=== PATIENT | male | born 1955 | race Caucasian/White ===

== ENCOUNTER 2020-10-15 06:54 | Outpatient (NON) | payer OTHER, SELFPAY ==
[2020-10-15 18:05] LABS: SARS-CoV-2 RNA PCR Negative
== END 2020-10-15 06:55 ==
LOC: ANHCOVIDDT 06:56
PROVIDERS: PCP Internal Medicine; Visit Provider Internal Medicine
DX: R05 Cough (principal); Z20.828 Contact with and (suspected) exposure to other viral communicable diseases
CPT/HCPCS: 87635; C9803; U0003

== ENCOUNTER 2023-05-13 01:22 | Day surgery (SDC) | payer BC, SELFPAY ==
[2023-05-04 08:38] VITALS: BMI 27.8
--- NOTE | 2023-05-12 11:31 | P.HP_ITS ---
History of Present Illness History of Present Illness Consent: Risks, benefits, and alternatives have been discussed and questions answered. Patient agrees to proceed with procedure. Chief complaint: hx colon polyps Narrative: Kristian Cabrera is a 67 year old male Referred for colon cancer screening. He had a polyp removed 5 years ago at the time of his last colonoscopy. Review of Systems Review of Systems: All systems reviewed & are unremarkable except as noted in HPI and below PMFSH Social History Social History Smoking packs per day: 0.5 Smoking cigarettes per day: 10.0 Smoking status: Former smoker Tobacco type: cigarettes Alcohol intake: current Alcohol use details: occasional Substance use: never Substance use type: does not use Living arrangements: alone Spiritual care concerns: No Meds Home Medications and Allergies Home Medications Medication Instructions Recorded Confirmed Type acyclovir 400 mg tablet 400 mg PO DAILY 05/04/23 05/04/23 History aspirin 81 mg tablet,delayed 81 mg PO DAILY 05/04/23 05/04/23 History release lisinopril 20 mg tablet 20 mg PO DAILY 05/04/23 05/04/23 History meloxicam 15 mg tablet 15 mg PO DAILY 05/04/23 05/04/23 History uelpamcsuene-haidnddl-twjlvl tablet 1 tablet PO DAILY 05/04/23 05/04/23 History semaglutide 1 mg/dose (4 mg/3 mL) 1 mg subcut WEEKLY 05/04/23 05/04/23 History subcutaneous pen injector (Ozempic) Allergies Allergy/AdvReac Type Severity Reaction Status Date / Time No Known Allergies Allergy Unverified 05/13/23 07:38 Exam 2 Resp: Auscultation: clear to auscultation bilaterally Cardio: Rate: regular rate Rhythm: regular rhythm GI: GI Palp: Yes Soft to palpation and No Tenderness to palpation present (GI) Assessment and Plan Assessment and plan (1) Colon cancer screening: Code(s): Z12.11 - Encounter for screening for malignant neoplasm of colon Status: Acute Assessment and Plan: Colonoscopy with possible biopsy or polypectomy or cautery or injection of substances.
[2023-05-13 07:40] VITALS: BP 148/85; PULSE 87; RESP 18; TEMP 36.1; O2SAT 99
[2023-05-13] MEDS: LACTATED RINGERS 1,000 ML 150 ML IV CONT (07:49)
[2023-05-13 07:51] LABS: Glucose Point of Care 89 mg/dl (65-105)
--- NOTE | 2023-05-13 08:10 | P.PNAN_ITS ---
Anes - Initial Pre Proc Eval Procedure: Operation Date: 05/13/23 08:30 Proposed Procedures p Colonoscopy - Anish Bunn MD Date/Time: 05/13/23 08:10 Surgeon: Anish Bunn MD Pre Op Diagnosis: hx colon polyps Patient Data Age: 67 Gender: M Height: 1.8 m Weight: 89.8 kg Last Vital Signs Temp 97 F L 05/13/23 07:40 Pulse 87 05/13/23 07:40 Resp 18 05/13/23 07:40 BP 148/85 H 05/13/23 07:40 Pulse Ox 99 05/13/23 07:40 O2 Del Method Room Air 05/13/23 07:40 Allergies Allergy/AdvReac Type Severity Reaction Status Date / Time No Known Allergies Allergy Unverified 05/13/23 07:38 Home Medications Medication Instructions Recorded Confirmed Type acyclovir 400 mg tablet 400 mg PO DAILY 05/04/23 05/04/23 History aspirin 81 mg tablet,delayed 81 mg PO DAILY 05/04/23 05/04/23 History release lisinopril 20 mg tablet 20 mg PO DAILY 05/04/23 05/04/23 History meloxicam 15 mg tablet 15 mg PO DAILY 05/04/23 05/04/23 History hzjtdftrhxne-bkycudpr-oatecx tablet 1 tablet PO DAILY 05/04/23 05/04/23 History semaglutide 1 mg/dose (4 mg/3 mL) 1 mg subcut WEEKLY 05/04/23 05/04/23 History subcutaneous pen injector (Ozempic) Laboratory Tests 05/13/23 07:48 POC Capillary Glucose 89 mg/dl (65-105) Patient hx anesthesia problems: none Family hx anesthesia problems: none Results Review: All pre-operative results and documents have been reviewed as part of the pre- operative evaluation. [facility] Social History Social History Smoking packs per day: 0.5 Smoking cigarettes per day: 10.0 Smoking status: Former smoker Tobacco type: cigarettes Alcohol intake: current Alcohol use details: occasional Substance use: never Substance use type: does not use Living arrangements: alone Spiritual care concerns: No Anes - Eval Final PreProcedure Day of Procedure 05/13/23 08:10 Patient weight: normal Heart: regular rate and rhythm Lungs: clear to auscultation Airway: Mallampati scale class III Neurological: alert and oriented Last oral intake: >/= 8 hours ASA classification: II Emergent: no Anesthetic plan: proceed Anesthesia type and monitoring: general GIVS and standard monitoring Results Review: All pre-operative results and documents have been reviewed as part of the pre-o perative evaluation. Informed Consent: The patient's anesthetic plan and its attendant risks and benefits were discussed with the patient/family/POA. Questions were solicited and answers provided to the satisfaction of the patient/family/POA.
[2023-05-13 08:37] VITALS: BP 125/85; PULSE 78; RESP 16; O2SAT 98
[2023-05-13 08:47] VITALS: BP 110/71; PULSE 78; RESP 21; O2SAT 100
[2023-05-13 08:57] VITALS: BP 128/82; PULSE 78; RESP 19; O2SAT 100
== END 2023-05-13 09:04 | disposition home or self-care (01) ==
PROVIDERS: PCP Internal Medicine; Visit Provider Internal Medicine Gastroenterology
PROC: 0DJD8ZZ Inspection of Lower Intestinal Tract, Via Natural or Artificial Opening Endoscopic (ICD-10-PCS; CPT 45378; principal; 2023-05-13 08:30)
DX: Z12.11 Encounter for screening for malignant neoplasm of colon (principal); Z86.010 Personal history of colon polyps; K57.30 Diverticulosis of large intestine without perforation or abscess without bleeding; Z87.891 Personal history of nicotine dependence
CPT/HCPCS: 45378; 82948; J2704; J7120

== ENCOUNTER 2023-09-05 08:28 | Outpatient (CLI) | payer BC, SELFPAY ==
[2023-09-05 20:09] LABS: Basophils Percent Auto 0.4 % (0.2-1.2); Eosinophils Absolute Auto 0.1 K/mm3 (0-0.3); Eosinophils Percent Auto 2.7 % (0-4.4); Hematocrit 43.5 % (42.0-52.0); Hemoglobin 13.5 g/dL (14.0-18.0); Immature Granulocyte Absolute 0.01 K/mm3 (0.00-0.031); Immature Granulocyte Percent A 0.4 % (0-0.5); Lymphocytes Absolute Auto 0.66 K/mm3 (0.9-3.2); Lymphocytes Percent Auto 25.5 % (18.3-44.2); Mean Corpuscular Hemoglobin 29.8 pg (26-34); Mean Platelet Volume 10.9 fl (7.4-10.4); Monocytes Absolute Auto 0.2 K/mm3 (0.1-0.6); Monocytes Percent Auto 7.7 % (2.6-8.5); Neutrophils Absolute Auto 1.6 K/mm3 (1.3-6.7); Neutrophils Percent Auto 63.3 % (45.5-73.1); Platelet Count Result 71 k/mm3 (150-375); Red Blood Count 4.53 M/mm3 (4.6-6.20); Red Cell Distribution Width 13.9 % (11.5-14.5); White Blood Count 2.6 K/mm3 (4.5-10.0)
[2023-09-05 20:36] LABS: Creatinine Urine 204.7 mg/dL
[2023-09-05 20:43] LABS: MALB Creatinine Ratio 12.1 mg/g (0-30); Microalbumin Urine Random 24.7 mg/L (0-16.7)
[2023-09-05 21:10] LABS: LDL Cholesterol Direct 81 mg/dL
[2023-09-05 21:11] LABS: Alanine Aminotransferase 30 U/L (6-50); Albumin Level 4.4 g/dL (3.5-5.1); Alkaline Phosphatase 90 U/L (38-126); Anion Gap 7 mmol/L (8-16); Aspartate Amino Transferase 42 U/L (17-59); Bilirubin,Total 0.7 mg/dL (0.2-1.3); Blood Urea Nitrogen 23 mg/dL (9-20); Calcium 9.5 mg/dL (8.4-10.2); Carbon Dioxide 31 mmol/L (22-30); Chloride 103 mmol/L (98-107); Cholesterol 154 mg/dL (0-200); Estimated Glomerular Filt Rate 51; Glucose 109 mg/dL (65-110); HDL Direct 34 mg/dL; Potassium 4.6 mmol/L (3.4-5.0); Sodium 141 mmol/L (137-145); Triglycerides 201 mg/dL (<150)
[2023-09-05 21:30] LABS: Prostate Specific Antigen 1.1 ng/mL (< OR = 4.0)
[2023-09-05 21:40] LABS: Hemoglobin A1C 5.1 % (<5.7)
[2023-09-05 22:05] LABS: Platelet Estimate Decreased (Adequate); Schistocytes None Seen (NORMAL)
[2023-09-05 22:06] LABS: Hypochromasia 1+ (NORMAL)
[2023-09-07 13:04] LABS: Apolipoprotein B 78 mg/dL (<90)
== END 2023-09-05 08:29 | disposition home or self-care (01) ==
LOC: ANHGOSHLAB 08:30
PROVIDERS: PCP Internal Medicine; Visit Provider Nurse Practitioner
DX: E11.9 Type 2 diabetes mellitus without complications (principal); E78.5 Hyperlipidemia, unspecified; I10 Essential (primary) hypertension; Z12.5 Encounter for screening for malignant neoplasm of prostate
CPT/HCPCS: 36415; 80053; 80061; 82043; 82172; 83036; 84153; 85025; 85055; G0103

== ENCOUNTER 2023-09-28 08:15 | Outpatient (CLI) | payer BC, SELFPAY ==
[2023-09-28 14:20] LABS: Basophils Percent Auto 0.3 % (0.2-1.2); Eosinophils Absolute Auto 0.1 K/mm3 (0-0.3); Eosinophils Percent Auto 1.6 % (0-4.4); Hematocrit 42.5 % (42.0-52.0); Hemoglobin 13.4 g/dL (14.0-18.0); Immature Granulocyte Absolute 0.01 K/mm3 (0.00-0.031); Immature Granulocyte Percent A 0.3 % (0-0.5); Immature Platelet Fraction Pct 5.4 % (0.9-11.2); Immature Reticulocyte Fraction 9.5 % (3.0-15.9); Lymphocytes Absolute Auto 0.75 K/mm3 (0.9-3.2); Mean Corpuscular HGB Conc 31.5 g/dl (32-36); Mean Corpuscular Hemoglobin 30.2 pg (26-34); Mean Corpuscular Volume 95.9 fl (80-100); Monocytes Absolute Auto 0.2 K/mm3 (0.1-0.6); Monocytes Percent Auto 7.7 % (2.6-8.5); Neutrophils Absolute Auto 2.1 K/mm3 (1.3-6.7); Neutrophils Percent Auto 66.1 % (45.5-73.1); Platelet Count Result 65 k/mm3 (150-375); Red Blood Count 4.43 M/mm3 (4.6-6.20); Red Cell Distribution Width 13.9 % (11.5-14.5); Reticulocyte Hemoglobin Conten 32.4 pg (28.2-35.7); Reticulocyte Percent 1.41 % (0.7-4.3); Reticulocytes Absolute 0.06 M/mm3 (0.02-0.1); White Blood Count 3.1 K/mm3 (4.5-10.0)
[2023-09-28 14:42] LABS: Alanine Aminotransferase 34 U/L (6-50); Albumin Level 4.1 g/dL (3.5-5.1); Alkaline Phosphatase 90 U/L (38-126); Anion Gap 11 mmol/L (8-16); Aspartate Amino Transferase 36 U/L (17-59); Bilirubin,Total 0.6 mg/dL (0.2-1.3); Blood Urea Nitrogen 20 mg/dL (9-20); Calcium 9.2 mg/dL (8.4-10.2); Carbon Dioxide 26 mmol/L (22-30); Chloride 102 mmol/L (98-107); Estimated Glomerular Filt Rate > 60; Glucose 158 mg/dL (65-110); Potassium 4.3 mmol/L (3.4-5.0); Sodium 139 mmol/L (137-145)
[2023-09-28 15:02] LABS: Creatinine Urine 175.3 mg/dL
[2023-09-28 15:09] LABS: Microalbumin Urine Random 35.1 mg/L (0-16.7)
[2023-09-28 15:15] LABS: HIV 1/2 Ab P24 Ag Result Negative (Negative)
[2023-09-28 15:30] LABS: Hepatitis C Virus Antibody Negative (Negative)
[2023-09-30 11:49] LABS: Folic Acid > 20.0 ng/mL (2.76->20)
== END 2023-09-28 08:16 | disposition home or self-care (01) ==
LOC: ANHGOSHLAB 08:16
PROVIDERS: PCP Internal Medicine; Visit Provider Nurse Practitioner
DX: D61.818 Other pancytopenia (principal)
CPT/HCPCS: 36415; 80053; 82043; 82607; 82728; 82746; 85025; 85046; 85055; 86703; 86803; G0432

== ENCOUNTER 2023-11-03 15:46 | Outpatient (CLI) | payer BC, SELFPAY ==
[2023-11-03 16:10] LABS: Basophils Percent Auto 0.6 % (0.2-1.2); Eosinophils Absolute Auto 0.1 K/mm3 (0-0.3); Eosinophils Percent Auto 1.9 % (0-4.4); Hematocrit 43.9 % (42.0-52.0); Hemoglobin 14.4 g/dL (14.0-18.0); Immature Granulocyte Absolute 0.02 K/mm3 (0.00-0.031); Immature Granulocyte Percent A 0.4 % (0-0.5); Lymphocytes Absolute Auto 1.01 K/mm3 (0.9-3.2); Lymphocytes Percent Auto 19.6 % (18.3-44.2); Mean Corpuscular HGB Conc 32.8 g/dl (32-36); Mean Corpuscular Hemoglobin 29.7 pg (26-34); Mean Corpuscular Volume 90.5 fl (80-100); Mean Platelet Volume 10.9 fl (7.4-10.4); Monocytes Absolute Auto 0.4 K/mm3 (0.1-0.6); Neutrophils Absolute Auto 3.6 K/mm3 (1.3-6.7); Neutrophils Percent Auto 69.5 % (45.5-73.1); Platelet Count Result 85 k/mm3 (150-375); Red Blood Count 4.85 M/mm3 (4.6-6.20); Red Cell Distribution Width 13.8 % (11.5-14.5); White Blood Count 5.2 K/mm3 (4.5-10.0)
[2023-11-03 20:16] LABS: Alanine Aminotransferase 45 U/L (6-50); Albumin Level 4.5 g/dL (3.5-5.1); Alkaline Phosphatase 97 U/L (38-126); Anion Gap 16 mmol/L (8-16); Aspartate Amino Transferase 40 U/L (17-59); Bilirubin,Total 0.8 mg/dL (0.2-1.3); Blood Urea Nitrogen 28 mg/dL (9-20); Calcium 9.7 mg/dL (8.4-10.2); Carbon Dioxide 24 mmol/L (22-30); Chloride 101 mmol/L (98-107); Estimated Glomerular Filt Rate 55; Glucose 108 mg/dL (65-110); Lactate Dehydrogenase 173 U/L (120-246); Potassium 4.4 mmol/L (3.4-5.0); Sodium 141 mmol/L (137-145)
[2023-11-03 21:19] LABS: Iron 78 ug/dL (49-181)
[2023-11-03 21:29] LABS: Percent Iron Saturation 25 % (20-50)
[2023-11-06 12:49] LABS: Methylmalonic Acid 267 nmol/L (87-318)
[2023-11-09 18:41] LABS: Soluble Transferrin Receptor 2.27 mg/L (0.76-1.76)
== END 2023-11-03 15:47 | disposition home or self-care (01) ==
LOC: ANHLAB 15:48
PROVIDERS: PCP Internal Medicine; Visit Provider Internal Medicine Hematology & Oncology
DX: D64.9 Anemia, unspecified (principal)
CPT/HCPCS: 36415; 80053; 82728; 83540; 83550; 83615; 83921; 84238; 85025; 85055

== ENCOUNTER 2023-11-17 07:34 | Outpatient (CLI) | payer BC, SELFPAY ==
--- NOTE | ~2023-11-17 | US_ITS ---
EXAMINATION: US abdomen complete DATE: 11/17/2023 INDICATION: Other secondary thrombocytopenia. TECHNIQUE: Multiple grayscale and Doppler ultrasound images of the abdomen were obtained. COMPARISON: None FINDINGS: The visualized portions of the head and body of the pancreas are normal. There is diffuse h epatic steatosis. There is normal flow in main portal vein. The gallbladder is normal in size and con tains stones. No gallbladder wall thickening or sonographic Cook sign. The common duct is normal an d measures 5 mm. Inferior vena cava is normal. The abdominal aorta is normal in caliber. The kidneys are normal in size. There is mild splenomegaly measuring 14.5 cm. IMPRESSION: 1. Mild splenomegaly. 2. Diffuse hepatic steatosis. 3. Cholelithiasis. Reviewed, dictated and finalized at location E. 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
== END 2023-11-17 07:35 | disposition home or self-care (01) ==
PROVIDERS: PCP Internal Medicine; Visit Provider Internal Medicine Hematology & Oncology
DX: R16.1 Splenomegaly, not elsewhere classified (principal); K76.0 Fatty (change of) liver, not elsewhere classified; K80.20 Calculus of gallbladder without cholecystitis without obstruction; D69.59 Other secondary thrombocytopenia
CPT/HCPCS: 76700

== ENCOUNTER 2024-02-22 12:28 | Outpatient (CLI) | payer BC, SELFPAY ==
[2024-02-22 20:11] LABS: Anion Gap 5 mmol/L (4-12); Blood Urea Nitrogen 25 mg/dL (9-20); Calcium 9.5 mg/dL (8.4-10.2); Carbon Dioxide 29 mmol/L (22-30); Chloride 106 mmol/L (98-107); Estimated Glomerular Filt Rate 51; Glucose 100 mg/dL (65-110); Potassium 4.5 mmol/L (3.4-5.0); Sodium 140 mmol/L (137-145)
== END 2024-02-22 12:29 | disposition home or self-care (01) ==
LOC: ANHGOSHLAB 12:29
PROVIDERS: PCP Internal Medicine; Visit Provider Nurse Practitioner
DX: E11.9 Type 2 diabetes mellitus without complications (principal)
CPT/HCPCS: 36415; 80048; 83036

== ENCOUNTER 2024-02-29 13:58 | Outpatient (CLI) | payer BC, SELFPAY ==
[2024-02-29 14:11] LABS: Basophils Percent Auto 0.6 % (0.2-1.2); Eosinophils Absolute Auto 0.1 K/mm3 (0-0.3); Eosinophils Percent Auto 1.7 % (0-4.4); Hematocrit 40.5 % (42.0-52.0); Hemoglobin 13.2 g/dL (14.0-18.0); Immature Granulocyte Absolute 0.01 K/mm3 (0.00-0.031); Immature Granulocyte Percent A 0.3 % (0-0.5); Immature Platelet Fraction Pct 4.8 % (0.9-11.2); Lymphocytes Absolute Auto 0.93 K/mm3 (0.9-3.2); Lymphocytes Percent Auto 26.6 % (18.3-44.2); Mean Corpuscular HGB Conc 32.6 g/dl (32-36); Mean Corpuscular Hemoglobin 29.3 pg (26-34); Mean Platelet Volume 10.2 fl (7.4-10.4); Monocytes Absolute Auto 0.3 K/mm3 (0.1-0.6); Monocytes Percent Auto 9.4 % (2.6-8.5); Neutrophils Absolute Auto 2.2 K/mm3 (1.3-6.7); Neutrophils Percent Auto 61.4 % (45.5-73.1); Platelet Count Result 67 k/mm3 (150-375); Red Cell Distribution Width 13.8 % (11.5-14.5); White Blood Count 3.5 K/mm3 (4.5-10.0)
== END 2024-02-29 13:59 | disposition home or self-care (01) ==
LOC: ANHLAB 14:00
PROVIDERS: PCP Internal Medicine; Visit Provider Internal Medicine Hematology & Oncology
DX: D64.9 Anemia, unspecified (principal)
CPT/HCPCS: 36415; 85025; 85055

== ENCOUNTER 2024-03-08 01:33 | Day surgery (SDC) | payer BC, SELFPAY ==
[2024-03-07 18:08] VITALS: BMI 29.3
--- NOTE | ~2024-03-08 | BM_ITS ---
EXAMINATION: CCL bone marrow asp w bx diag DATE: 03/08/2024 09:26 INDICATION: Chronic anemia. TECHNIQUE: A time-out was performed to verify the patient's name, date of , and procedure to b e performed. The procedure including the risks, benefits, and alternatives was discussed with the pat ient. Risks discussed included bleeding and infection. The patient understood the risks and agreed to proceed. The skin overlying the left ilium was prepped and draped in usual sterile fashion. Anesth etic was administered with 1% lidocaine subcutaneously. Moderate sedation was achieved with 1 mg Vers ed IV and 50 mcg fentanyl IV. An 11 gauge needle was inserted into the ilium with fluoroscopic tanya nce. Bone marrow was aspirated. An 8 gauge needle was then inserted into the ilium with fluoroscopic guidance. A core bone marrow biopsy was obtained. There were no immediate complications. Fluoroscopy exposure time was 0.0 minutes. The total number of images was 45. FINDINGS: Real-time fluoroscopy demonstrates a marker overlying the left posterior superior iliac spi ne. IMPRESSION: 1. Fluoro-guided bone marrow aspiration. 2. Fluoro-guided bone marrow core biopsy. Reviewed, dictated and finalized at location A.
[2024-03-08 08:17] VITALS: BP 121/81; PULSE 76; RESP 18; TEMP 36.6; O2SAT 97; BMI 30.2
[2024-03-08 08:17] LABS: Basophils Percent Auto 0.6 % (0.2-1.2); Eosinophils Absolute Auto 0.1 K/mm3 (0-0.3); Eosinophils Percent Auto 1.9 % (0-4.4); Hematocrit 41.1 % (42.0-52.0); Hemoglobin 13.3 g/dL (14.0-18.0); Immature Granulocyte Absolute 0.01 K/mm3 (0.00-0.031); Immature Granulocyte Percent A 0.3 % (0-0.5); Immature Platelet Fraction Pct 3.8 % (0.9-11.2); Lymphocytes Absolute Auto 0.67 K/mm3 (0.9-3.2); Lymphocytes Percent Auto 21.7 % (18.3-44.2); Mean Corpuscular HGB Conc 32.4 g/dl (32-36); Mean Corpuscular Hemoglobin 29.1 pg (26-34); Mean Corpuscular Volume 89.9 fl (80-100); Mean Platelet Volume 10.2 fl (7.4-10.4); Monocytes Absolute Auto 0.3 K/mm3 (0.1-0.6); Neutrophils Percent Auto 65.5 % (45.5-73.1); Platelet Count Result 68 k/mm3 (150-375); Red Blood Count 4.57 M/mm3 (4.6-6.20); Red Cell Distribution Width 13.8 % (11.5-14.5); White Blood Count 3.1 K/mm3 (4.5-10.0)
[2024-03-08 08:37] LABS: INR 1.1; Prothrombin Time 14.5 Seconds (11.1-14.7)
--- NOTE | 2024-03-08 08:55 | WPDMODSED ---
Moderate Sedation Note-Pt Data Patient Data Diagnosis: Chronic anemia. Present Complaint: Chronic anemia. Procedure to be performed/Plan: Fluoro-guided bone marrow biopsy of ilium. Allergies Allergy/AdvReac Type Severity Reaction Status Date / Time No Known Allergies Allergy Verified 03/08/24 08:11 Home Medications Medication Instructions Recorded Confirmed Type hwxvdrydeykx-gogwjmba-vcfvqu tablet 1 tablet PO DAILY 05/04/23 03/07/24 History ferrous sulfate 325 mg (65 mg 325 mg PO DAILY 01/12/24 03/07/24 History iron) tablet lisinopril 20 mg tablet 20 mg PO DAILY #90 tabs 02/20/24 03/07/24 Rx Sedation/Anesthesia: No previous sedation/anesthesia problems (including family history). [facility] Past Medical History Medical History (Updated 09/14/23 @ 14:45 by Ness Lerma NP) Diabetes GERD (gastroesophageal reflux disease) HPV in male Hyperlipidemia Hypertension Irregular heart beat Family History Family History Mother Colon cancer Grandparent Diabetes mellitus Social History Social History Smoking packs per day: 0.25 Smoking cigarettes per day: 5.0 Years smoked: 40 Smoking pack-years: 10.00 Smoking status: Former smoker Tobacco type: cigarettes Second hand tobacco smoke exposure: No Alcohol intake: current Drinks per week: 0 Alcohol use details: rare use of alcohol; social use Substance use: current Substance use type: marijuana Lack of Transportation: No Lack of Food: Never True Current Housing: I Have Housing Concerned About Future Housing: No Difficulty Paying Gas/Electric Bills: No Difficulty Paying for Meds: No Currently Unemployed: No Education: High School Diploma/GED Difficulty w/ Childcare or Family Care: No Living arrangements: alone Occupation/Education: occupation Spiritual care concerns: No Agree to blood products: Yes Mod Sed Physical Exam Physical Exam Pre Procedural Exam: Normal: Lungs, Heart Rate, Heart Rhythm and Abdomen and Variation: Appearance (Obese) Hours since solid foods: 12 Hours since liquid intake: 12 Mallampati Classification: class III Internal Medicine - PN: Obj Da Vital Signs Vital Signs: Vital Signs - 24 hr 03/08/24 08:17 Temperature 36.6 C Pulse Rate 76 Respiratory Rate 18 Blood Pressure 121/81 Pulse Oximetry 97 Oxygen Delivery Room Air Labs 03/08/24 08:08 Labs: Laboratory Results - last 24 hr 03/08/24 08:08 WBC 3.1 L RBC 4.57 L Hgb 13.3 L Hct 41.1 L MCV 89.9 MCH 29.1 MCHC 32.4 RDW 13.8 Plt Count 68 L MPV 10.2 Immature Gran % (Auto) 0.3 Neut % (Auto) 65.5 Lymph % (Auto) 21.7 [place] % (Auto) 10.0 H Eos % (Auto) 1.9 Baso % (Auto) 0.6 Lymph # (Auto) 0.67 L [place] # (Auto) 0.3 Eos # (Auto) 0.1 Baso # (Auto) 0.0 Abs Immat Gran (auto) 0.01 Absolute Neuts (auto) 2.0 Absolute Nucleated RBC 0.000 Nucleated RBC % 0.0 % Immature Plt Fraction 3.8 PT 14.5 INR 1.1 ASA Classification/Sedation ASA Classification/Sedation ASA Class: II Emergent: No Risks: Risks, benefits and alternatives explained and patient/family accepted plan for sedation. Patient re-evaluated immediately prior to sedation.
[2024-03-08 09:30] VITALS: BP 126/79; PULSE 79; RESP 20; O2SAT 95
[2024-03-08 09:45] VITALS: BP 127/79; PULSE 77; RESP 14; O2SAT 95
[2024-03-08 10:00] VITALS: BP 119/58; PULSE 75; RESP 14; O2SAT 97
[2024-03-08 10:15] VITALS: BP 120/61; PULSE 81; RESP 13; O2SAT 95
== END 2024-03-08 10:20 | disposition home or self-care (01) ==
PROVIDERS: PCP Internal Medicine; Referring Provider Internal Medicine Hematology & Oncology; Visit Provider Radiology Diagnostic Radiology
DX: D64.9 Anemia, unspecified (principal); I10 Essential (primary) hypertension; E11.9 Type 2 diabetes mellitus without complications; K21.9 Gastro-esophageal reflux disease without esophagitis; E78.5 Hyperlipidemia, unspecified; F12.90 Cannabis use, unspecified, uncomplicated; Z87.891 Personal history of nicotine dependence; Z80.0 Family history of malignant neoplasm of digestive organs
CPT/HCPCS: 36415; 38222; 85025; 85055; 85610; 88184; 88185; 88305; 88311; 88313; 88342; J1642; J2250; J3010; J7040

== ENCOUNTER 2024-06-20 14:11 | Outpatient (CLI) | payer BC, SELFPAY ==
[2024-06-20 14:27] LABS: Basophils Percent Auto 0.5 % (0.2-1.2); Eosinophils Absolute Auto 0.1 K/mm3 (0-0.3); Eosinophils Percent Auto 2.6 % (0-4.4); Hematocrit 41.8 % (42.0-52.0); Hemoglobin 13.4 g/dL (14.0-18.0); Immature Granulocyte Absolute 0.01 K/mm3 (0.00-0.031); Immature Granulocyte Percent A 0.3 % (0-0.5); Immature Platelet Fraction Pct 5.1 % (0.9-11.2); Lymphocytes Absolute Auto 0.86 K/mm3 (0.9-3.2); Lymphocytes Percent Auto 22.2 % (18.3-44.2); Mean Corpuscular HGB Conc 32.1 g/dl (32-36); Mean Corpuscular Hemoglobin 29.1 pg (26-34); Mean Corpuscular Volume 90.7 fl (80-100); Mean Platelet Volume 10.3 fl (7.4-10.4); Monocytes Absolute Auto 0.3 K/mm3 (0.1-0.6); Monocytes Percent Auto 7.8 % (2.6-8.5); Neutrophils Absolute Auto 2.6 K/mm3 (1.3-6.7); Neutrophils Percent Auto 66.6 % (45.5-73.1); Platelet Count Result 76 k/mm3 (150-375); Red Blood Count 4.61 M/mm3 (4.6-6.20); Red Cell Distribution Width 14.5 % (11.5-14.5); White Blood Count 3.9 K/mm3 (4.5-10.0)
[2024-06-20 14:27] LABS: Blood Urea Nitrogen 25 mg/dL (8-26); Carbon Dioxide 26 mmol/L (22-30); Chloride 103 mmol/L (98-109); Estimated Glomerular Filt Rate 43; Glucose 94 mg/dL (70-105); Ionized Calcium (POC) 1.14 mmol/L (1.11-1.31); Potassium 4.3 mmol/L (3.5-4.9); Sodium 141 mmol/L (138-146)
== END 2024-06-20 14:12 | disposition home or self-care (01) ==
LOC: ANHLAB 14:13
PROVIDERS: PCP Internal Medicine; Visit Provider Internal Medicine Hematology & Oncology
DX: D64.9 Anemia, unspecified (principal)
CPT/HCPCS: 36415; 80047; 85025; 85055

== ENCOUNTER 2024-10-16 15:24 | Outpatient (CLI) | payer BC, SELFPAY ==
[2024-10-16 15:36] LABS: Basophils Percent Auto 0.3 % (0.2-1.2); Eosinophils Absolute Auto 0.1 K/mm3 (0-0.3); Eosinophils Percent Auto 2.3 % (0-4.4); Hematocrit 40.4 % (42.0-52.0); Immature Granulocyte Absolute 0.01 K/mm3 (0.00-0.031); Immature Granulocyte Percent A 0.3 % (0-0.5); Lymphocytes Absolute Auto 0.83 K/mm3 (0.9-3.2); Lymphocytes Percent Auto 23.6 % (18.3-44.2); Mean Corpuscular HGB Conc 32.2 g/dl (32-36); Mean Corpuscular Hemoglobin 29.3 pg (26-34); Mean Platelet Volume 9.6 fl (7.4-10.4); Monocytes Absolute Auto 0.3 K/mm3 (0.1-0.6); Monocytes Percent Auto 8.8 % (2.6-8.5); Neutrophils Absolute Auto 2.3 K/mm3 (1.3-6.7); Neutrophils Percent Auto 64.7 % (45.5-73.1); Platelet Count Result 68 k/mm3 (150-375); Red Blood Count 4.44 M/mm3 (4.6-6.20); Red Cell Distribution Width 13.7 % (11.5-14.5); White Blood Count 3.5 K/mm3 (4.5-10.0)
[2024-10-16 15:39] LABS: Blood Urea Nitrogen 25 mg/dL (8-26); Carbon Dioxide 29 mmol/L (22-30); Chloride 99 mmol/L (98-109); Estimated Glomerular Filt Rate 51; Glucose 105 mg/dL (70-105); Ionized Calcium (POC) 1.19 mmol/L (1.11-1.31); Potassium 4.1 mmol/L (3.5-4.9); Sodium 140 mmol/L (138-146)
== END 2024-10-16 15:25 | disposition home or self-care (01) ==
LOC: ANHLAB 15:25
PROVIDERS: PCP Internal Medicine; Visit Provider Internal Medicine Hematology & Oncology
DX: D64.9 Anemia, unspecified (principal)
CPT/HCPCS: 36415; 80047; 85025

== ENCOUNTER 2024-11-02 07:01 | Outpatient (CLI) | payer BC, SELFPAY ==
[2024-11-02 07:57] LABS: Basophils Percent Auto 0.6 % (0.2-1.2); Eosinophils Absolute Auto 0.1 K/mm3 (0-0.3); Eosinophils Percent Auto 3.4 % (0-4.4); Hematocrit 42.7 % (42.0-52.0); Hemoglobin 13.9 g/dL (14.0-18.0); Immature Granulocyte Absolute 0.01 K/mm3 (0.00-0.031); Immature Granulocyte Percent A 0.3 % (0-0.5); Immature Platelet Fraction Pct 5.8 % (0.9-11.2); Lymphocytes Absolute Auto 0.72 K/mm3 (0.9-3.2); Lymphocytes Percent Auto 22.4 % (18.3-44.2); Mean Corpuscular HGB Conc 32.6 g/dl (32-36); Mean Corpuscular Hemoglobin 29.1 pg (26-34); Mean Corpuscular Volume 89.5 fl (80-100); Mean Platelet Volume 10.9 fl (7.4-10.4); Monocytes Absolute Auto 0.2 K/mm3 (0.1-0.6); Monocytes Percent Auto 7.2 % (2.6-8.5); Neutrophils Absolute Auto 2.1 K/mm3 (1.3-6.7); Neutrophils Percent Auto 66.1 % (45.5-73.1); Platelet Count Result 68 k/mm3 (150-375); Red Blood Count 4.77 M/mm3 (4.6-6.20); Red Cell Distribution Width 13.9 % (11.5-14.5); White Blood Count 3.2 K/mm3 (4.5-10.0)
[2024-11-02 08:23] LABS: Alanine Aminotransferase 30 U/L (6-50); Albumin Level 4.5 g/dL (3.5-5.1); Alkaline Phosphatase 90 U/L (38-126); Anion Gap 6 mmol/L (4-12); Aspartate Amino Transferase 33 U/L (17-59); Bilirubin,Total 0.6 mg/dL (0.2-1.3); Blood Urea Nitrogen 25 mg/dL (9-20); Calcium 9.6 mg/dL (8.4-10.2); Carbon Dioxide 28 mmol/L (22-30); Chloride 105 mmol/L (98-107); Cholesterol 187 mg/dL (0-200); Estimated Glomerular Filt Rate 55; Glucose 116 mg/dL (65-110); HDL Direct 38 mg/dL; Potassium 4.3 mmol/L (3.4-5.0); Sodium 139 mmol/L (137-145); Triglycerides 177 mg/dL (<150)
[2024-11-02 08:34] LABS: LDL Cholesterol Direct 96 mg/dL
[2024-11-02 08:53] LABS: Prostate Specific Antigen 1.5 ng/mL (< OR = 4.0)
[2024-11-02 09:35] LABS: Creatinine Urine 118.1 mg/dL
[2024-11-02 09:36] LABS: MALB Creatinine Ratio 40.2 mg/g (0-30); Microalbumin Urine Random 47.5 mg/L (0-16.7)
[2024-11-02 10:20] LABS: Hepatitis C Virus Antibody Negative (Negative)
[2024-11-02 10:21] LABS: Hemoglobin A1C 5.6 % (<5.7)
[2024-11-03 07:43] LABS: Protein, Total 7.3 g/dL (6.1-8.1)
[2024-11-03 08:04] LABS: ANA Cascade Screen NEGATIVE (NEGATIVE)
[2024-11-06 02:59] LABS: Creatinine, Random Urine 118 mg/dL (20-320); Total Prot/Creat ratio mg/mg 0.153 (0.025-0.148); Total Protein/Creatinine Ratio 153 mg/g creat (25-148)
== END 2024-11-02 07:02 | disposition home or self-care (01) ==
LOC: ANHLAB 07:02
PROVIDERS: PCP Internal Medicine; Visit Provider Nurse Practitioner
DX: R94.4 Abnormal results of kidney function studies (principal); D61.818 Other pancytopenia; E78.2 Mixed hyperlipidemia; E11.9 Type 2 diabetes mellitus without complications; Z12.5 Encounter for screening for malignant neoplasm of prostate
CPT/HCPCS: 36415; 80053; 80061; 82043; 82570; 83036; 84153; 84155; 84156; 84165; 84166; 85025; 85055; 86038; 86225; 86235; 86364; 86803; G0103

== ENCOUNTER 2024-11-08 14:12 | Outpatient (CLI) | payer BC, SELFPAY ==
--- NOTE | ~2024-11-08 | XR_ITS ---
CHEST RADIOGRAPH, PA AND LATERAL CLINICAL HISTORY: R05.9 - Cough, unspecified . COMPARISON: None TECHNIQUE: PA and lateral views of the chest. FINDINGS The cardiomediastinal silhouette is unremarkable. The lungs are clear. Visualized osseous structures and soft tissues are unremarkable. IMPRESSION: No focal infiltrate or effusion. Reviewed, dictated and finalized at location A. 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
== END 2024-11-08 14:13 | disposition home or self-care (01) ==
LOC: GOSHIMG 14:14
PROVIDERS: PCP Nurse Practitioner; Visit Provider Nurse Practitioner
DX: R05.9 Cough, unspecified (principal)
CPT/HCPCS: 71046

== ENCOUNTER 2025-03-29 10:58 | Outpatient (CLI) | payer BC, SELFPAY ==
--- NOTE | ~2025-03-29 | XR_ITS ---
[id number] 03/29/2025 11:07 Indication: Left knee pain Procedure: 2 views left knee Comparison: No prior studies for comparison. Findings: No fracture, subluxation or dislocation. No significant joint effusion. No foreign bodies. Impression: 1: No significant bone or joint abnormality. Reviewed, dictated and finalized at location A. Impression: 1: No significant bone or joint abnormality.
== END 2025-03-29 10:59 | disposition home or self-care (01) ==
LOC: GOSHIMG 10:58
PROVIDERS: PCP Nurse Practitioner; Visit Provider Nurse Practitioner
DX: M25.562 Pain in left knee (principal)
CPT/HCPCS: 73560

== ENCOUNTER 2025-04-03 13:37 | Outpatient (CLI) | payer BC, SELFPAY ==
--- NOTE | ~2025-04-03 | CT_ITS ---
CT Scan of the Chest without Contrast: Clinical Indication: Lung cancer screening, nicotine dependence Technique: Contiguous sections were acquired throughout the chest without intravenous contrast. Dose reduction technique was used on this scan by utilizing automated exposure control and iterative recon struction technique. The dose-length product (DLP) was 187.51 mGy-cm. Findings: There is no evidence of any significant mediastinal, hilar or axillary lymphadenopathy. Coronary meenu ry calcifications are present. There is no evidence of pleural or pericardial effusion. The lungs are clear. No pulmonary nodules or infiltrates are noted. Images through the upper abdomen reveal possible minimally nodular contour of liver and possible sple nomegaly. Impression: Lung RADS 1: Negative. 12 month follow-up screening CT advised. Suspected mild cirrhotic change of the liver and splenomegaly. Reviewed, dictated and finalized at location . Impression: Lung RADS 1: Negative. 12 month follow-up screening CT advised. Suspected mild cirrhotic change of the liver and splenomegaly.
== END 2025-04-03 13:38 | disposition home or self-care (01) ==
LOC: GOSHIMG 13:37
PROVIDERS: PCP Nurse Practitioner; Visit Provider Nurse Practitioner
DX: Z12.2 Encounter for screening for malignant neoplasm of respiratory organs (principal); Z87.891 Personal history of nicotine dependence
CPT/HCPCS: 71271

== ENCOUNTER 2025-04-15 09:17 | Outpatient (CLI) | payer BC, SELFPAY ==
--- NOTE | ~2025-04-15 | US_ITS ---
Limited Abdominal Sonogram: Real-time sonographic imaging of the right upper quadrant was performed. Clinical History: Fatty liver Findings: The liver appears heterogeneous, with no evidence of mass lesion or bile duct dilatation. Main portal vein demonstrates normal direction of flow. The gallbladder is well distended, and demons trate small layering gallstones. The common bile duct measures 4 mm. The visualized pancreas, aorta, and IVC are unremarkable. Impression: Probable diffuse fatty infiltration of liver versus other chronic liver disease. Cholelithiasis. Reviewed, dictated and finalized at location M. Impression: Probable diffuse fatty infiltration of liver versus other chronic liver disease . Cholelithiasis.
== END 2025-04-15 09:18 | disposition home or self-care (01) ==
LOC: GOSHIMG 09:18
PROVIDERS: PCP Nurse Practitioner; Visit Provider Nurse Practitioner
DX: K80.20 Calculus of gallbladder without cholecystitis without obstruction (principal); K76.0 Fatty (change of) liver, not elsewhere classified
CPT/HCPCS: 76705

== ENCOUNTER 2025-06-06 15:38 | Outpatient (CLI) | payer BC, SELFPAY ==
--- OUTSIDE RECORDS SUMMARY | 2025-06-06 15:45 | XMS_ITS | Encounter Summary ---
Author Organization [facility] Address [address] [place] [address] Care Team Providers Care Yarn Skeins Examiner Name Role Phone Kristian Ashley DO Primary Care Provider Encounter Details Date Type Department Care Team (Late st Contact Info) Description 03/20/2024 Abstract [facility] Oncology and Hematology - [place]ry[place] 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
--- OUTSIDE RECORDS SUMMARY | 2025-06-06 15:45 | XMS_ITS | Clinical Summary ---
Author Organization [facility] Address [address] [place] [address] Care Team Providers Care Technical Sales Director Name Role Phone Unavailable Primary Care Provider Unavailabl e Source Comments [facility],non-owned Affiliates and Associated Physician Practices is amultiple site organization consisting of ambulatory clinics and hospital sitesin [place], [place], [place] and [place]. This disclosure is being madepursuant to the Care Everywhere program and may not contain all information available regarding this patient. Last updated 18.[facility] Social History Tobacco Use Types Packs/Day Years Used Date Smoking Tobacco: Never Assessed Sex and Gender Information Value Date Recorded Sex Assigned at Not on file Legal Sex Male 4:02 PM CDT Gender Identity Not on file Sexual Orientation Not on file Plan of Treatment Health Maintenance Due Date Last Done Comments COLOGUARD (AGES 45-75) - COL ON CA SCREENING 1957 COLON MONITORING 1957 COLONOSCOPY - COLON CA SCREENING 1957 CT COLONOGRAPHY - COLON CA SCREENING 1957 Colorectal Cancer Screening 1957 FIT - COLON CA SCREENING 1957 FLEX SIG - COLON CA SCREENING 1957 LIPID TESTING 1957 HEPATITIS C SCREENING 07/09/1975 DTAP/TDAP/TD VACCINES (1 - Tdap) 1976 PNEUMOCOCCAL VACCINE 50+ (1 of 1 - PCV) 2007 ZOSTER VACCINE (1 of 2) 2007 COVID-19 VACCINE ( - 2023-2 5 season) 2024 DEPRESSION SCREENING 10/31/2024 INFLUENZA VACCINE (#1) 2025 Respiratory Syncytial Virus (RSV) Vaccine Pt: or over 60 yrs (1 - 1-dose 75+ series) 2032 HEPATITIS B VACCINE Aged Out No longe r eligible based on patient's age to complete this topic HIB VACCINE Aged Out No longer eligi ble based on patient's age to complete this topic HPV VACCINE Aged Out No longer eligi ble based on patient's age to complete this topic MENINGOCOCCAL (Group B) VACC INE SHARED DECISION-MAKING Aged Out No longer eligibl e based on patient's age to complete this topic MENINGOCOCCAL GROUPS A/C/Y/W VACCINE Aged Out No longer eligible b ased on patient's age to complete this topic Insurance BC/COUNT INCLUDES THE [facility] [place] SELF PAY NO INSURANCE Member Subscriber Plan / Payer (Ef fective for All Dates) Name:Kristian Cabrera Member ID:Not on file Relation to Subscriber:Not on file Name:KRISTIAN CABRERA Subscriber ID:Not on file Address: [address] [place] [id number] Payer ID:Not on file Group ID:Not on file Type:Self Pay Address: [facility]
--- OUTSIDE RECORDS SUMMARY | 2025-06-06 15:45 | XMS_ITS | Encounter Summary ---
Author Organization [facility] Address [address] [place] [address] Care Team Providers Care Clinic Physician Name Role Phone Unavailable Primary Care Provider Unavailabl e Encounter Details Date Type Department Care Team (Late st Contact Info) Description 03/09/2024 Lab Requisition [facility] - Pathology Lab [address] [place] [id number] Nick Antonio MD [address] [address] Illness, unspecified Social History Tobacco Use Types Packs/Day Years Used Date Smoking Tobacco: Never Assessed Sex and Gender Information Value Date Recorded Sex Assigned at Not on file Legal Sex Male 4:02 PM CDT Gender Identity Not on file Sexual Orientation Not on file documented as of this encounter Plan of Treatment Not on file documented as of this encounter Procedures Procedure Name Priority Date/Time Associated Diagnosis Comments BONE MARROW BIOPSY (STL) Routine 03/08/2024 9:00 AM CDT Illness, unspecified documented in this encounter Results * BONE MARROW BIOPSY (STL) (03/08/2024 9:00 AM CDT) Case Report Bone Marrow Patholog y Report Case: [id number] Authorizing Provider: Nick Antonio Collected: 03/08/2024 09:00 AM MD Mario Ordering Location: [facility] - Received: 03/09/2024 02:08 PM Pathology Lab Pathologist: Leesa Kong MD Specimens: A) - Bone Marrow Clot B) - Bone Marrow Core 03/14/2024 5:30 PM CDT [facility] Final Diagnosis Bone marrow, iliac crest, core biopsy, clot section, and aspirate: - Mildly hypercellular bone marrow (50% cellular) with trilineage hematopoiesis, mild erythroid hyperplasia, and no significant dyspoiesis (see comment) - Mild and patchy reticulin fibrosis (MF-1) - Adequate iron stores 03/14/2024 5:30 PM [facility] at 1730 CDT AP Comment The patient is a 68-year-old man with anemia and thrombocytopenia. The bone marrow is mildly hypercellular for the patient's age and shows normal trilineage hematopoiesis. No significant dyspoiesis is noted. Mild and patchy reticulin fibrosis is present.. Flow cytometry was negative for diagnostic immunophenotypic abnormalities. Definitive morphologic evidence of a myelodysplastic neoplasm is not present, but given the patient's anemia and thrombocytopenia, clonal cytopenia of undetermined significance is in the differential diagnosis. Correlation with chromosome analysis as well as myeloid next generation sequencing is recommended to evaluate for genetic abnormalities associated with myeloid neoplasms. 03/14/2024 5:30 PM [facility] Peripheral Smear Description Manual Differential Count (100 cells): 65% neutrophils, 25% lymphocytes, 9% monocytes, 1% eosinophils, and 0% basophils. 0 nRBCs / 100 WBCs. Leukocyte number: decreased. Granulocyte morphology: normal. Lymphocyte morphology: normal. Erythrocyte number: decreased. Erythrocyte morphology: normocytic. Anisopoikilocytosis: mild. Polychromasia: not significant. Platelet number: decreased. Platelet morphology: normal. 03/14/2024 5:30 PM [facility] Bone Marrow Aspirate Differential count (200 cells): 3% blasts, 53.5% maturing myeloid precursors, 33% erythroid progenitors, 1.5% monocytes, 3.5% eosinophils, 5.5% lymphocytes, 0% plasma cells. Specimen quality: adequate. Spicules: numerous. Trilineage Hematopoiesis: present. Myeloid:Erythroid ratio: decreased. Myeloid Maturation: normal. Erythroid Maturation: normal. Megakaryocyte morphology: normal nuclear lobation. Storage iron (by special stain): decreased. Sideroblastic iron (by special stain): no ring sideroblasts. 03/14/2024 5:30 PM [facility] Bone Marrow Core Biopsy and Clot Section Description Specimen quality: adequate with 1.7 cm of evaluable marrow. Cellularity: 50% Trilineage Hematopoiesis: present. Myeloid to Erythroid ratio: decreased. Myeloid maturation and localization: normal. Erythroid maturation and localization: normal. Megakaryocyte number: normal. Megakaryocyte distribution: normal. Lymphoid aggregates: absent. Bone trabeculae: normal. Blood vessels: Sinusoids are dilated, larger caliber vessels appear normal. Other: no morphologic evidence of lymphoma, granulomata, or extrinsic tumor cells Plasma cells: normal. Clot section marrow particles: present. Clot section morphology: similar to core biopsy. 03/14/2024 5:30 PM [facility] Flow Cytometry Summary Flow cytometry showed no diagnostic immunophenotypic evidence of increased blasts, monoclonal B-cells, an aberrant T-cell population, or plasma cell neoplasm ([id number]). 03/14/2024 5:30 PM [facility] Clinical History Chronic anemia 03/14/2024 5:30 PM [facility] Materials Received Received are 22 slide(s)and 3 blocks labeled [id number] along with a copy of the outside pathology report. [place] [address]. All original materials are returned to the referring institution, along with a copy of our final report. 03/14/2024 5:30 PM [facility] Microscopic Description Additional stains are performed to further characterize the marrow. Stains are performed in addition to flow cytometry given the cellular heterogeneity marrow. All stains reacted with appropriate controls. CD138, a marker of plasma cells, highlights approximately 5% of total cells in both the core biopsy and clot section. Plasma cells are aligned primarily along blood vessels, their normal anatomic distribution. A reticulin stain of the core biopsy highlights a mild increase in reticulin fibrosis. Iron stains of the clot sections reveal decreased iron stores. An iron stain of the core biopsy reveals adequate iron stores. A [place] red stain of the core biopsy is negative for amyloid deposition. 03/14/2024 5:30 PM [facility] Pathologist Location at [facility] 03/14/2024 5:30 PM [facility] Disclaimer The performance characteristics of all immunohistochemical and indirect immunofluorescence stains (if any) cited in this report were determined by the Histopathology Laboratory of [facility]. Some of these tests were developed by our own laboratory and have not been cleared or approved by the US Food and Drug Administration. The FDA does not require this test to go through premarket FDA review. These tests are used for clinical purposes. They should not be regarded as investigational or for research. This laboratory is certified under the Clinical Laboratory Improvement Amendments (CLIA) as qualified to perform high complexity clinical laboratory testing. This case has been personally reviewed and interpreted by the attending (teaching) pathologist. 03/14/2024 5:30 PM CDT [facility] Embedded Images 03/14/2024 5:30 PM CDT [facility] Pathology/Cytology BONE MARROW SPECIMEN / Unknown 03/08/2024 9:00 AM CDT 03/09/2024 2:08 PM CDT Miscellaneous samples (specimen) BONE MARROW SPECIMEN / Unknown 03/08/2024 9:00 AM CDT 03/09/2024 2:08 PM CDT Nick Antonio MD LAB - PATHOLOGY/CYT OLOGY ORDERABLES Final Result [facility] [address] [facility] [phone] documented in this encounter Visit Diagnoses Diagnosis Illness, unspecified documented in this encounter
--- OUTSIDE RECORDS SUMMARY | 2025-06-06 15:45 | XMS_ITS | Encounter Summary ---
Author Organization [facility] Address [address] [facility] [place] [address] Care Team Providers Care Production Operations Manager Name Role Phone Unavailable Primary Care Provider Unavailabl e Encounter Details Date Type Department Care Team (Late st Contact Info) Description 03/08/2024 Lab Requisition [facility] - Pathology Lab [address] [place] [phone] Nick Antonio MD [address] [address] Anemia, unspecified Social History Tobacco Use Types Packs/Day [...] Procedure Name Priority Date/Time Associated Diagnosis Comments FLOW CYTOMETRY BONE MARROW Routine 03/08/2024 9:00 AM CDT Anemia, unspecified documented in this encounter Results * FLOW CYTOMETRY BONE MARROW (03/08/2024 9:00 AM CDT) Case Report Flow Cytometry Case: [id number] Authorizing Provider: Nick Antonio Collected: 03/08/2024 09:00 AM MD Mario Ordering Location: [facility] - Received: 03/08/2024 10:55 AM Pathology Lab Pathologist: Leesa Kong MD Specimen: Bone Marrow 03/08/2024 1:32 PM CDT [facility] Final Diagnosis Bone marrow, flow cytometric immunophenotyping: - No diagnostic immunophenotypic evidence of increased blasts, monoclonal B cells, an aberrant T-cell population, or plasma cell neoplasm 03/08/2024 1:32 PM [facility] at 1332 CDT Flow Cytometry Interpretation Viability: 85% B-cells: polytypic, kappa:lambda ratio 2.1:1 T-cells: No diagnostic immunophenotypic aberrancy detected. There is mild CD2 and CD7 up-regulation, common features of activated T cells. CD4:CD8 ratio 0.9:1 Blasts: detected, 1%, express CD34, CD13, CD33. Approximately 1.5% of cells within the dim CD45 gate represent CD19, CD20, CD10 positive cells with CD5 expression, presumably hematogones but more mature lymphocytes are also the differential Plasma cells: no significant population detected MRD sent: No A bone marrow aspirate smear prepared from the flow cytometry specimen has been reviewed for quality assurance specialist purposes. Please correlate with histologic review of the bone marrow. 03/08/2024 1:32 PM [facility] Flow Cytometry Results Differential Result Comment Flow Cell Count /uL 21,300 Total Viability % 85.0 Lymphocytes % 11 Dim CD45 Region % 5 Monocytes % 6 Granulocytes % 78 03/08/2024 1:32 PM [facility] Reason for test Anemia, unspecified 285.9 03/08/2024 1:32 PM [facility] Client Specimen ID # [id number] 03/08/2024 1:32 PM [facility] Number of markers 17 were performed. A-1 Flow CD10 A-2 Flow CD13 A-4 Flow CD20 A-10 Flow CD2 A-11 Flow CD3 A-12 Flow CD4 A-16 Flow CD1a A-3 Flow CD19 A-5 Flow CD33 A-6 Flow CD34 A-7 Flow CD45 A-13 Flow CD5 A-14 Flow CD7 A-15 Flow CD8 A-17 Flow CD30 A-8 [place]+CD19+ A-9 Lambda+CD19+ 03/08/2024 1:32 PM [facility] Pathologist Location at [facility] 03/08/2024 1:32 PM [facility] Disclaimer Test performed at [facility], [address] [place], [place], [address]. *The established laboratory minimum viability is 70%. Values below the minimum may result in the failure to find an abnormal population of cells. This test was developed and its performance characteristics determined by the Flow Cytometry Laboratory. It has not been cleared by the [place] Food and Drug Administration (FDA). The FDA has determined that such clearance or approval is not necessary. This test is used for clinical purposes. It should not be regarded as investigational or for research. This laboratory is regulated under the Clinical Laboratory Improvement Amendments of 1998 (CLIA) as a qualified to perform high complexity clinical testing. 03/08/2024 1:32 PM CDT [facility] Embedded Images 1:32 PM CDT [facility] Pathology/Cytolo gy BONE MARROW SPECIMEN / Unknown 03/08/2024 9:00 AM CDT 03/08/2024 10:55 AM CDT Nick Antonio MD LAB - PATHOLOGY/CYT OLOGY ORDERABLES Final Result [facility] [address] [place], [place] [id number] [place] [address] documented in this encounter Visit Diagnoses Diagnosis Anemia, unspecified documented in this encounter
--- OUTSIDE RECORDS SUMMARY | 2025-06-06 15:45 | XMS_ITS | Clinical Summary ---
Author Organization [facility] Dorys Gargleandro Address [address] [place] [address] Care Team Providers Care Professor Of Pathology Name Role Phone Kristian Ashley DO Primary Care Provider Allergies No known active allergies Medications acyclovir (ZOVIRAX) 400 mg tablet Take 400 mg by mouth see administration instructions. Active lisinopriL (PRINIVIL) 20 mg tablet Take 20 mg by mouth daily. Active multivitamins- minerals-lutei n (Centrum Silver) Tablet Take 1 Tablet by mouth daily. Active Active Problems No known active problems Family History Medical History Relation Name Comments Colon Cancer Mother Relation Name Status Comments Brother Alive Father Mother Sister Alive Son 1 Alive Son 2 Social History Tobacco Use Types Packs/Day Years Used Date Smoking Tobacco: Former Cigarettes Q uit: 2021 Smokeless Tobacco: Never Tobacco Cessation:Counseling Given: Not Answered Alcohol Use Standard Drinks/Week Comments Yes 0 (1 standard drink = 0.6 oz pur e alcohol) occasional Sex and Gender Information Value Date Recorded Sex Assigned at Not on file Legal Sex Male 11:36 AM LAWN CARE SPECIALIST Gender Identity Not on file Sexual Orientation Not on file Last Filed Vital Signs Vital Sign Reading Time Taken Comments Blood Pressure 131/74 10/16/2024 3:45 PM LAWN CARE SPECIALIST Pulse 82 10/16/2024 3:45 PM LAWN CARE SPECIALIST Temperature 36.5 C (97.7 F) 10/16/2024 3:45 PM LAWN CARE SPECIALIST Respiratory Rate 16 10/16/2024 3:45 PM LAWN CARE SPECIALIST Oxygen Saturation 98% 10/16/2024 3:45 PM LAWN CARE SPECIALIST Inhaled Oxygen Concentration - - Weight 88.5 kg (195 lb) 10/16/2024 3:45 PM LAWN CARE SPECIALIST Height 180.3 cm (5' 11) 11/03/2023 2:52 PM LAWN CARE SPECIALIST Body Mass Index 27.2 11/03/2023 2:52 PM LAWN CARE SPECIALIST Plan of Treatment Health Maintenance Due Date Last Done Comments DIABETES ANNUAL FOOT EXAM 1975 DIABETES ANNUAL RETINAL EXAM 1975 DIABETES HBA1C Q 6 MONTHS 1975 DIABETES MICROALBUMIN ANNUAL SCREEN 1975 LDL CHOLESTEROL ANNUAL 1975 PNEUMOCOCCAL VACCINE 50+ YEA RS (1 of 2 - PCV) 1976 COLORECTAL SCREENING 2002 Colorectal Cancer Screening 2002 FIT-DNA Q 3 years 2002 FIT/FOBT Q 1 year 2002 Flex Sig/CT Colonography Q 5 years 2002 ZOSTER VACCINE (1 of 2) 2007 INFLUENZA VACCINE (#1) 2025 08/19/2022, 2019 DTAP/TDAP/TD VACCINES (2 - Td or Tdap) 11/21/2030 RSV VACCINE (60+ or ) (1 - 1-dose 75+ series) 2032 Abdominal Aortic Aneurysm (AAA) Screening Completed 11/17/2023 Procedures Procedure Name Priority Date/Time Associated Diagnosis Comments US ABDOMEN COMPLETE Routine 11/17/2023 11:08 AM LAWN CARE SPECIALIST from Last 3 Months or Most Recently Relevant to Health Maintenance Results * US ABDOMEN COMPLETE (11/17/2023 11:08 AM LAWN CARE SPECIALIST) Anatomical Region Laterality Modality Abdomen Ultrasound us Jesus Liu MD US ORDERABLES Final Result from Last 3 Months or Most Recently Relevant to Health Maintenance Insurance [facility] [employer] ACCESS Care Teams Professor Of Pathology Relationship Specialty Start Date End Date Kristian Ashley DO [address] [phone] PCP - General Internal Medicine 11/03/23
[2025-06-06 16:17] LABS: Hematocrit 42.4 % (42.0-52.0); Hemoglobin 13.3 g/dL (14.0-18.0); Immature Granulocyte Percent A 0.2 % (0-0.5); Immature Platelet Fraction Pct 3.3 % (0.9-11.2); Lymphocytes Absolute Auto 0.86 K/mm3 (0.9-3.2); Mean Corpuscular HGB Conc 31.4 g/dl (32-36); Mean Corpuscular Hemoglobin 28.9 pg (26-34); Mean Corpuscular Volume 92.0 fl (80-100); Nucleated Red Blood Cells Absolute Auto 0.000 K/mm3 (0.0-0.012); Nucleated Red Blood Cells Perc 0.0 % (0.0-0.2); Platelet Count Result 88 k/mm3 (150-375); Red Blood Count 4.61 M/mm3 (4.6-6.20); White Blood Count 4.0 K/mm3 (4.5-10.0)
[2025-06-06 16:27] LABS: INR 1.1; Prothrombin Time 14.6 Seconds (11.1-14.7)
[2025-06-06 16:29] LABS: Schistocytes None Seen
[2025-06-06 16:35] LABS: Alanine Aminotransferase 54 U/L (6-50); Albumin Level 4.2 g/dL (3.5-5.1); Alkaline Phosphatase 87 U/L (38-126); Anion Gap 11 mmol/L (4-12); Aspartate Amino Transferase 48 U/L (17-59); Bilirubin,Total 0.6 mg/dL (0.2-1.3); Blood Urea Nitrogen 23 mg/dL (9-20); Calcium 9.3 mg/dL (8.4-10.2); Carbon Dioxide 25 mmol/L (22-30); Chloride 103 mmol/L (98-107); Estimated Glomerular Filt Rate 53; Glucose 92 mg/dL (65-110); Potassium 4.2 mmol/L (3.4-5.0); Sodium 139 mmol/L (137-145); Total Protein 7.9 g/dL (6.3-8.2)
[2025-06-06 16:39] LABS: Iron 101 ug/dL (49-181)
[2025-06-06 16:48] LABS: Percent Iron Saturation 36 % (20-50)
[2025-06-06 17:02] LABS: Thyroid Stimulating Hormone 3.000 uIU/mL (0.465-4.680)
[2025-06-06 17:20] LABS: Ferritin 267.00 ng/mL (11.1-264)
[2025-06-06 18:18] LABS: Hepatitis B Surface Antigen Negative (Negative)
[2025-06-06 18:24] LABS: HAV RESULT Negative (Negative); Hepatitis B Core IgM Result Negative (Negative)
[2025-06-06 18:35] LABS: Hepatitis B Surface Anti Res Negative
[2025-06-07 07:09] LABS: GGT 93 IU/L (0-65)
[2025-06-07 08:09] LABS: Hep A Ab, Total Positive (Negative)
[2025-06-07 18:08] LABS: ANA by IFA Rfx Titer/Pattern Positive (.)
== END 2025-06-06 15:39 | disposition home or self-care (01) ==
PROVIDERS: Nurse Practitioner; PCP Internal Medicine; Visit Provider Nurse Practitioner Family
DX: K76.0 Fatty (change of) liver, not elsewhere classified (principal); K74.00 Hepatic fibrosis, unspecified; R11.2 Nausea with vomiting, unspecified
CPT/HCPCS: 36415; 80053; 80074; 82103; 82104; 82105; 82390; 82728; 82977; 83540; 83550; 84443; 85025; 85055; 85610; 86015; 86038; 86376; 86381; 86706; 86708

== ENCOUNTER 2025-06-27 02:22 | Day surgery (SDC) | payer BC, SELFPAY ==
[2025-06-21 12:48] VITALS: BMI 28.5
--- OUTSIDE RECORDS SUMMARY | 2025-06-27 02:25 | XMS_ITS | Encounter Summary ---
Author Organization [facility] Address [address] [place] [address] Care Team Providers Care Family Consultant Name Role Phone Kristian Ashley DO Primary Care Provider Encounter Details Date Type Department Care Team (Late st Contact Info) Description 03/20/2024 Abstract [facility] Oncology and Hematology - Arya [address] [facility] [address] [place] [address] Jesus Liu MD [address] [facility] [address] [place] [address] Social History Tobacco Use Types Packs/Day Years Used Date Smoking Tobacco: Former Cigarettes Q uit: 2021 Smokeless Tobacco: Never Alcohol Use Standard Drinks/Week Comments Yes 0 (1 standard drink = 0.6 oz pur e alcohol) occasional Sex and Gender Information Value Date Recorded Sex Assigned at Not on file Legal Sex Male 11:36 AM UTILITY TELLER Gender Identity Not on file Sexual Orientation Not on file documented as of this encounter Plan of Treatment Not on file documented as of this encounter Visit Diagnoses Not on filedocumented in this encounter Care Teams Family Consultant Relationship Specialty Start Date End Date Kristian Ashley DO [address] [facility] [address] [place] [address] PCP - General Internal Medicine 11/03/23 documented as of this encounter
--- OUTSIDE RECORDS SUMMARY | 2025-06-27 02:25 | XMS_ITS | Encounter Summary ---
Author Organization [facility] Address [address] [facility] [place] [address] Care Team Providers Care Barrel Dedenting Machine Operator Name Role Phone Unavailable Primary Care Provider Unavailabl e Encounter Details Date Type Department Care Team (Late st Contact Info) Description 03/08/2024 Lab Requisition [facility] - Pathology Lab [address] [place] [phone] Nick Antonio MD [address] [address] Anemia, unspecified Social History Tobacco [...] AM CDT) Case Report Flow Cytometry Case: [id number] Authorizing Provider: Nick Antonio Collected: 03/08/2024 09:00 AM MD Mario Ordering Location: [facility] - Received: 03/08/2024 10:55 AM Pathology Lab Pathologist: Leesa Kong MD Specimen: Bone Marrow 03/08/2024 1:32 PM CDT [facility] Final Diagnosis Bone marrow, flow cytometric immunophenotyping: - No diagnostic immunophenotypic evidence of increased blasts, monoclonal B cells, an aberrant T-cell population, or plasma cell neoplasm 03/08/2024 1:32 PM [facility] at 1332 CDT Flow [...] cytometry specimen has been reviewed for quality systems technician purposes. Please correlate with histologic review of the bone marrow. 03/08/2024 1:32 PM [facility] Flow Cytometry Results Differential Result Comment Flow Cell Count /uL 21,300 Total Viability % 85.0 Lymphocytes % 11 Dim CD45 Region % 5 Monocytes % 6 Granulocytes % 78 03/08/2024 1:32 PM [facility] Reason for test Anemia, unspecified 285.9 03/08/2024 1:32 PM [facility] Client Specimen ID # [id number] 03/08/2024 1:32 PM [facility] Number of markers 17 were performed. A-1 Flow CD10 A-2 Flow CD13 A-4 Flow CD20 A-10 Flow CD2 A-11 Flow CD3 A-12 Flow CD4 A-16 Flow CD1a A-3 Flow CD19 A-5 Flow CD33 A-6 Flow CD34 A-7 Flow CD45 A-13 Flow CD5 A-14 Flow CD7 A-15 Flow CD8 A-17 Flow CD30 A-8 [place]+CD19+ A-9 Lambda+CD19+ 03/08/2024 1:32 PM [facility] Pathologist Location at [facility] 03/08/2024 1:32 PM [facility] Disclaimer Test performed at [facility], [address] [place], [place], [address]. *The established laboratory minimum viability is 70%. [...] complexity clinical testing. 03/08/2024 1:32 PM CDT [facility] Embedded Images 1:32 PM CDT [facility] Pathology/Cytolo gy BONE MARROW SPECIMEN / Unknown 03/08/2024 9:00 AM CDT 03/08/2024 10:55 AM CDT Nick Antonio MD LAB - PATHOLOGY/CYT OLOGY ORDERABLES Final Result [facility] [address] [place], [place] [id number] [place] [address] documented in this encounter Visit Diagnoses Diagnosis Anemia, unspecified documented in this encounter
--- OUTSIDE RECORDS SUMMARY | 2025-06-27 02:25 | XMS_ITS | Clinical Summary ---
Author Organization [facility] Dorys Gargleandro Address [address] [place] [address] Care Team Providers Care Rail Track Maintainer Name Role Phone Kristian Ashley DO Primary [...] on file Legal Sex Male 11:36 AM TURNING AND BEADING MACHINE OPERATOR Gender Identity Not on file Sexual Orientation Not on file Last Filed Vital Signs Vital Sign Reading Time Taken Comments Blood Pressure 131/74 10/16/2024 3:45 PM TURNING AND BEADING MACHINE OPERATOR Pulse 82 10/16/2024 3:45 PM TURNING AND BEADING MACHINE OPERATOR Temperature 36.5 C (97.7 F) 10/16/2024 3:45 PM TURNING AND BEADING MACHINE OPERATOR Respiratory Rate 16 10/16/2024 3:45 PM TURNING AND BEADING MACHINE OPERATOR Oxygen Saturation 98% 10/16/2024 3:45 PM TURNING AND BEADING MACHINE OPERATOR Inhaled Oxygen Concentration - - Weight 88.5 kg (195 lb) 10/16/2024 3:45 PM TURNING AND BEADING MACHINE OPERATOR Height 180.3 cm (5' 11) 11/03/2023 2:52 PM TURNING AND BEADING MACHINE OPERATOR Body Mass Index 27.2 11/03/2023 2:52 PM TURNING AND BEADING MACHINE OPERATOR Plan of Treatment Health Maintenance Due Date [...] US ABDOMEN COMPLETE Routine 11/17/2023 11:08 AM TURNING AND BEADING MACHINE OPERATOR from Last 3 Months or Most Recently Relevant to Health Maintenance Results * US ABDOMEN COMPLETE (11/17/2023 11:08 AM TURNING AND BEADING MACHINE OPERATOR) Anatomical Region Laterality Modality Abdomen Ultrasound us Jesus Liu MD US ORDERABLES Final Result from Last 3 Months or Most Recently Relevant to Health Maintenance Insurance [facility] [employer] ACCESS Care Teams Rail Track Maintainer Relationship Specialty Start Date End Date Kristian Ashley DO [address] [phone] PCP - General Internal Medicine 11/03/23
--- OUTSIDE RECORDS SUMMARY | 2025-06-27 02:25 | XMS_ITS | Clinical Summary ---
Author Organization [facility] Address [address] [place] [address] Care Team Providers Care Oriental Medicine Practitioner Name Role Phone Unavailable Primary Care Provider Unavailabl e Source Comments [facility] [employer],non-owned Affiliates and Associated Physician Practices is amultiple site organization consisting of ambulatory clinics and hospital sitesin [place], [place], [place] and [place]. This disclosure is being madepursuant to the Care Everywhere program and may not contain all information available regarding this patient. Last updated 18.[facility] [employer] Social History Tobacco Use Types Packs/Day Years [...] patient's age to complete this topic Insurance [facility] [place] SELF PAY NO INSURANCE Member Subscriber Plan / Payer (Ef fective for All Dates) Name:Kristian Cabrera Member ID:Not on file Relation to Subscriber:Not on file Name:KRISTIAN CABRERA Subscriber ID:Not on file Address: [address] [place] [phone] Payer ID:Not on file Group ID:Not on file Type:Self Pay Address: [facility]
[2025-06-27 08:51] VITALS: BP 162/94; PULSE 84; RESP 16; TEMP 36.3; O2SAT 99; BMI 28.3
[2025-06-27] MEDS: LACTATED RINGERS 1,000 ML 150 ML IV CONT (09:02)
--- NOTE | 2025-06-27 09:04 | WPDANESEPPF ---
Anes - Initial Pre Proc Eval Procedure: Operation Date: 06/27/25 10:00 Proposed Procedures p Esophagogastroduodenoscopy EGD - Unruly Pavon MD Date/Time: 06/27/25 09:04 Surgeon: Unruly Pavon MD Pre Op Diagnosis: Unspecified cirrhosis of liver, GERD Patient Data Age: 69 Gender: M Height: 1.8 m Weight: 92.3 kg Last Vital Signs Temp 36.3 C L 06/27/25 08:51 Pulse 84 06/27/25 08:51 Resp 16 06/27/25 08:51 BP 162/94 H 06/27/25 08:51 Pulse Ox 99 06/27/25 08:51 O2 Del Method Room Air 06/27/25 08:51 Allergies Allergy/AdvReac Type Severity Reaction Status Date / Time No Known Allergies Allergy Verified 06/27/25 08:49 Home Medications ?Medication ?Instructions ?Recorded ?Confirmed ?Type xqdbncbuwsfj-ojoxsjko-sqxfzs tablet 1 tablet PO DAILY 05/04/23 06/27/25 History ferrous sulfate 325 mg (65 mg 325 mg PO DAILY 01/12/24 06/21/25 History iron) tablet Held on 06/21/25. Instructions: .Provider Order lisinopril 20 mg tablet 20 mg PO DAILY #90 tabs 04/15/25 06/27/25 Rx carvedilol 6.25 mg tablet (Coreg) 6.25 mg PO Q12H 1 month #60 tabs 06/26/25 06/27/25 Rx Patient hx anesthesia problems: none Family hx anesthesia problems: none Results Review: All pre-operative results and documents have been reviewed as part of the pre-operative evaluation. 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 Hyperlipidemia Irregular heart beat Hypertension GERD (gastroesophageal reflux disease) Diabetes Family History Family History Mother Colon cancer Grandparent Diabetes mellitus Social History Social History Smoking packs per day: 0.25 Smoking cigarettes per day: 5.0 Years smoked: 40 Smoking pack-years: 10.00 Smoking status: Former smoker Tobacco type: cigarettes Second hand tobacco smoke exposure: No Alcohol intake: current Drinks per week: 0 Alcohol use details: rare use of alcohol; social use Substance use: current Substance use type: marijuana Do You Feel Safe in your Home?: Yes Lack of Transportation: No Lack of Food: Never True Current Housing: I Have Housing Concerned About Future Housing: No Difficulty Paying Gas/Electric Bills: No Difficulty Paying for Meds: No Currently Unemployed: No Education: High School Diploma/GED Difficulty w/ Childcare or Family Care: No Living arrangements: alone Occupation/Education: occupation Spiritual care concerns: No Agree to blood products: Yes Anes - Eval Final PreProcedure Day of Procedure 06/27/25 09:04 Patient weight: overweight Heart: regular rate and rhythm Lungs: clear to auscultation Airway: Mallampati scale class II Neurological: alert and oriented Last oral intake: >/= 8 hours ASA classification: III Emergent: no Anesthetic plan: proceed Anesthesia type and monitoring: general GIVS and standard monitoring Results Review: All pre-operative results and documents have been reviewed as part of the pre-operative evaluation. Informed Consent: The patient's anesthetic plan and its attendant risks and benefits were discussed with the patient/family/POA. Questions were solicited and answers provided to the satisfaction of the patient/family/POA.
--- NOTE | 2025-06-27 09:42 | WPDHPUPDATE1 ---
History and Physical Update Update Date/Time: 06/27/25 09:42 History and Physical has been reviewed, including an updated exam of the patient. There are NO changes in the patient's condition. Risks, benefits, and alternatives have been discussed and questions answered. Patient agrees to proceed with procedure.
[2025-06-27 09:54] VITALS: BP 119/76; PULSE 87; RESP 19; O2SAT 98
[2025-06-27 10:04] VITALS: BP 141/88; PULSE 86; RESP 21; O2SAT 98
[2025-06-27 10:14] VITALS: BP 138/94; PULSE 87; RESP 25; O2SAT 98
== END 2025-06-27 10:18 | disposition home or self-care (01) ==
PROVIDERS: PCP Internal Medicine; Referring Provider Nurse Practitioner Family; Visit Provider Internal Medicine Gastroenterology
PROC: 0DJ08ZZ Inspection of Upper Intestinal Tract, Via Natural or Artificial Opening Endoscopic (ICD-10-PCS; CPT 43235; principal; 2025-06-27 10:00)
DX: K21.9 Gastro-esophageal reflux disease without esophagitis (principal); I10 Essential (primary) hypertension; E78.5 Hyperlipidemia, unspecified; E11.9 Type 2 diabetes mellitus without complications; I49.9 Cardiac arrhythmia, unspecified; K74.60 Unspecified cirrhosis of liver; K76.0 Fatty (change of) liver, not elsewhere classified; D75.9 Disease of blood and blood-forming organs, unspecified; K80.20 Calculus of gallbladder without cholecystitis without obstruction; K74.00 Hepatic fibrosis, unspecified; F12.90 Cannabis use, unspecified, uncomplicated; Z79.51 Long term (current) use of inhaled steroids; Z87.891 Personal history of nicotine dependence; Z80.0 Family history of malignant neoplasm of digestive organs
CPT/HCPCS: 43235; J2003; J2704; J7120

== ENCOUNTER 2025-08-19 09:21 | Outpatient (CLI) | payer BC, SELFPAY ==
[2025-08-19 13:02] LABS: Hematocrit 41.3 % (42.0-52.0); Hemoglobin 13.2 g/dL (14.0-18.0); Immature Granulocyte Percent A 0.0 % (0-0.5); Immature Platelet Fraction Pct 4.6 % (0.9-11.2); Lymphocytes Absolute Auto 0.80 K/mm3 (0.9-3.2); Mean Corpuscular HGB Conc 32.0 g/dl (32-36); Mean Corpuscular Hemoglobin 28.6 pg (26-34); Mean Corpuscular Volume 89.6 fl (80-100); Nucleated Red Blood Cells Absolute Auto 0.000 K/mm3 (0.0-0.012); Nucleated Red Blood Cells Perc 0.0 % (0.0-0.2); Platelet Count Result 63 k/mm3 (150-375); Red Blood Count 4.61 M/mm3 (4.6-6.20); White Blood Count 3.2 K/mm3 (4.5-10.0)
[2025-08-19 13:24] LABS: Alanine Aminotransferase 36 U/L (6-50); Albumin Level 4.4 g/dL (3.5-5.1); Alkaline Phosphatase 110 U/L (38-126); Anion Gap 10 mmol/L (4-12); Aspartate Amino Transferase 47 U/L (17-59); Bilirubin,Total 0.5 mg/dL (0.2-1.3); Blood Urea Nitrogen 35 mg/dL (9-20); Calcium 9.8 mg/dL (8.4-10.2); Carbon Dioxide 24 mmol/L (22-30); Chloride 104 mmol/L (98-107); Estimated Glomerular Filt Rate 51; Glucose 205 mg/dL (65-110); Potassium 4.3 mmol/L (3.4-5.0); Sodium 138 mmol/L (137-145); Total Protein 7.9 g/dL (6.3-8.2)
[2025-08-20 15:09] LABS: Anti-CCP Ab, IgG/IgA 8 units (0-19)
[2025-08-21 06:07] LABS: Hexagonal Phase Phosph YES YES; PTT-LA 52.4 sec (0.0-43.5); PTT-LA Mix YES YES
== END 2025-08-19 09:22 | disposition home or self-care (01) ==
LOC: ANHGOSHLAB 09:22
PROVIDERS: PCP Nurse Practitioner; Visit Provider Internal Medicine
DX: R76.0 Raised antibody titer (principal)
CPT/HCPCS: 36415; 80053; 85025; 85055; 85613; 85732; 86146; 86160; 86200; 86235; 86430

== ENCOUNTER 2025-08-19 09:52 | Outpatient (CLI) | payer BC, SELFPAY ==
--- NOTE | ~2025-08-19 | XR_ITS ---
XR lumbar spine 2-3V Indication: raised antibody titer, no inj, no surg, checking on arthriti Comparison: None Findings: Grade 1 anterolisthesis of L4 on L5, grade 1 retrolisthesis of L2 on L3, no fracture is identified. Moderate loss of disc height throughout. Soft tissues unremarkable Impression: No acute abnormality. Reviewed, dictated and finalized at location P. Impression: No acute abnormality.
== END 2025-08-19 09:53 | disposition home or self-care (01) ==
PROVIDERS: PCP Nurse Practitioner; Visit Provider Internal Medicine
DX: R76.0 Raised antibody titer (principal)
CPT/HCPCS: 72100

== ENCOUNTER 2025-10-21 07:56 | Outpatient (CLI) | payer BC, SELFPAY ==
--- OUTSIDE RECORDS SUMMARY | 2025-10-21 08:09 | XMS_ITS | Encounter Summary ---
Author Organization [facility] Address [address] [facility] [address] Care Team Providers Care Lap Polisher Name Role Phone Unavailable Primary Care Provider Unavailabl e Encounter Details Date Type Department Care Team (Late st Contact Info) Description 03/09/2024 Lab Requisition [facility] - Pathology Lab [address] [place] [phone] Nick Antonio MD [address] [address] Illness, unspecified Social History Tobacco [...] Report Bone Marrow Patholog y Report Case: [id number] Authorizing Provider: Nick Antonio Collected: 03/08/2024 09:00 AM MD Mario Ordering Location: [facility] - Received: 03/09/2024 02:08 [...] - Adequate iron stores 03/14/2024 5:30 PM [facility] at 1730 CDT AP [...] associated with myeloid neoplasms. 03/14/2024 5:30 PM [facility] Peripheral Smear Description Manual Differential Count (100 cells): 65% neutrophils, 25% lymphocytes, 9% monocytes, 1% eosinophils, and 0% basophils. 0 nRBCs / 100 WBCs. Leukocyte number: decreased. Granulocyte morphology: normal. Lymphocyte morphology: normal. Erythrocyte number: decreased. Erythrocyte morphology: normocytic. Anisopoikilocytosis: mild. Polychromasia: not significant. Platelet number: decreased. Platelet morphology: normal. 03/14/2024 5:30 PM [facility] Bone Marrow Aspirate Differential [...] stain): no ring sideroblasts. 03/14/2024 5:30 PM [facility] Bone Marrow Core Biopsy [...] similar to core biopsy. 03/14/2024 5:30 PM [facility] Flow Cytometry Summary Flow cytometry showed no diagnostic immunophenotypic evidence of increased blasts, monoclonal B-cells, an aberrant T-cell population, or plasma cell neoplasm ([id number]). 03/14/2024 5:30 PM [facility] Clinical History Chronic anemia 03/14/2024 5:30 PM [facility] Materials Received Received are 22 slide(s)and 3 blocks labeled [id number] along with a copy of the outside pathology report. [place] [address]. All original materials are returned to the referring institution, along with a copy of our final report. 03/14/2024 5:30 PM [facility] Microscopic Description Additional stains [...] negative for amyloid deposition. 03/14/2024 5:30 PM [facility] Pathologist Location at [facility] 03/14/2024 5:30 PM [facility] Disclaimer The performance characteristics of all immunohistochemical and indirect immunofluorescence stains (if any) cited in this report were determined by the Histopathology Laboratory of [facility]. Some of these tests were developed by [...] attending (teaching) pathologist. 03/14/2024 5:30 PM CDT [facility] Embedded Images 03/14/2024 5:30 PM CDT [facility] Pathology/Cytology BONE MARROW SPECIMEN / Unknown 03/08/2024 9:00 AM CDT 03/09/2024 2:08 PM CDT Miscellaneous samples (specimen) BONE MARROW SPECIMEN / Unknown 03/08/2024 9:00 AM CDT 03/09/2024 2:08 PM CDT Nick Antonio MD LAB - PATHOLOGY/CYT OLOGY ORDERABLES Final Result [facility] [address] [facility]. [address] [phone] documented in this encounter Visit Diagnoses Diagnosis Illness, unspecified documented in this encounter
--- OUTSIDE RECORDS SUMMARY | 2025-10-21 08:09 | XMS_ITS | Encounter Summary ---
Author Organization [facility] Address [address] [facility] [place] [address] Care Team Providers Care Veterinary Inspector Name Role Phone Unavailable Primary Care Provider Unavailabl e Encounter Details Date Type Department Care Team (Late st Contact Info) Description 03/08/2024 Lab Requisition [facility] - Pathology Lab [address] [place] [phone] Nick Antonio MD [address] [address] Anemia, unspecified Social History Tobacco [...] AM CDT) Case Report Flow Cytometry Case: [id number] Authorizing Provider: Nick Antonio Collected: 03/08/2024 09:00 AM MD Mario Ordering Location: [facility] - Received: 03/08/2024 10:55 AM Pathology Lab Pathologist: Leesa Kong MD Specimen: Bone Marrow 03/08/2024 1:32 PM CDT [facility] Final Diagnosis Bone marrow, flow cytometric immunophenotyping: - No diagnostic immunophenotypic evidence of increased blasts, monoclonal B cells, an aberrant T-cell population, or plasma cell neoplasm 03/08/2024 1:32 PM [facility] at 1332 CDT Flow [...] flow cytometry specimen has been reviewed for supplier quality engineer purposes. Please correlate with histologic review of the bone marrow. 03/08/2024 1:32 PM [facility] Flow Cytometry Results Differential Result Comment Flow Cell Count /uL 21,300 Total Viability % 85.0 Lymphocytes % 11 Dim CD45 Region % 5 Monocytes % 6 Granulocytes % 78 03/08/2024 1:32 PM [facility] Reason for test Anemia, unspecified 285.9 03/08/2024 1:32 PM [facility] Client Specimen ID # [id number] 03/08/2024 1:32 PM [facility] Number of markers 17 were performed. A-1 Flow CD10 A-2 Flow CD13 A-4 Flow CD20 A-10 Flow CD2 A-11 Flow CD3 A-12 Flow CD4 A-16 Flow CD1a A-3 Flow CD19 A-5 Flow CD33 A-6 Flow CD34 A-7 Flow CD45 A-13 Flow CD5 A-14 Flow CD7 A-15 Flow CD8 A-17 Flow CD30 A-8 Chalco+CD19+ A-9 Lambda+CD19+ 03/08/2024 1:32 PM [facility] Pathologist Location at [facility] 03/08/2024 1:32 PM [facility] Disclaimer Test performed at [facility], [address] [place], [place], [address]. *The established laboratory minimum viability is 70%. [...] complexity clinical testing. 03/08/2024 1:32 PM CDT [facility] Embedded Images 1:32 PM CDT [facility] Pathology/Cytolo gy BONE MARROW SPECIMEN / Unknown 03/08/2024 9:00 AM CDT 03/08/2024 10:55 AM CDT Nick Antonio MD LAB - PATHOLOGY/CYT OLOGY ORDERABLES Final Result [facility] [address] [place], [place] [id number] [place] [address] documented in this encounter Visit Diagnoses Diagnosis Anemia, unspecified documented in this encounter
--- OUTSIDE RECORDS SUMMARY | 2025-10-21 08:09 | XMS_ITS | Clinical Summary ---
Author Organization [facility] Address [address] [place] [address] Care Team Providers Care Cytologist Name Role Phone Kristian Ashley DO Primary Care Provider Allergies No known active allergies Medications acyclovir (ZOVIRAX) 400 mg tablet Take 400 mg by mouth see administration instructions. Active lisinopriL (PRINIVIL) 20 mg tablet Take 20 mg by mouth daily. Active multivitamins- minerals-lutei n (Centrum Silver) Tablet Take 1 Tablet by mouth daily. 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 Provider, Abstract from Last 3 Months Family History Medical History Relation Name Comments Colon Cancer Mother Relation Name Status Comments Brother Alive Father Mother Sister Alive Son 1 Alive Son 2 Social History Tobacco Use Types Packs/Day Years Used Date Smoking Tobacco: Former Cigarettes 0 Q uit: 2021 Smokeless Tobacco: Never Tobacco Cessation:Counseling Given: Not Answered Alcohol Use Standard Drinks/Week Comments Yes 0 (1 standard drink = 0.6 oz pur e alcohol) occasional Sex and Gender Information Value Date Recorded Sex Assigned at Not on file 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 Gender Identity Not on file Sexual Orientation Not on file Last Filed Vital Signs Vital Sign Reading Time Taken Comments Blood Pressure 131/74 10/16/2024 3:45 PM LABOR EXPEDITER Pulse 82 10/16/2024 3:45 PM LABOR EXPEDITER Temperature 36.5 C (97.7 F) 10/16/2024 3:45 PM LABOR EXPEDITER Respiratory Rate 16 10/16/2024 3:45 PM LABOR EXPEDITER Oxygen Saturation 98% 10/16/2024 3:45 PM LABOR EXPEDITER Inhaled Oxygen Concentration - - Weight 88.5 kg (195 lb) 10/16/2024 3:45 PM LABOR EXPEDITER Height 180.3 cm (5' 11) 11/03/2023 2:52 PM LABOR EXPEDITER Body Mass Index 27.2 11/03/2023 2:52 PM LABOR EXPEDITER Plan of Treatment Health Maintenance Due Date [...] ) (1 - 1-dose 75+ series) 2032 Insurance [facility] Care Teams Cytologist Relationship Specialty Start Date End Date Kristian Ashley DO [address] [phone] PCP - General Internal Medicine 11/03/23
--- OUTSIDE RECORDS SUMMARY | 2025-10-21 08:09 | XMS_ITS | Encounter Summary ---
Author Organization [facility] [employer] [facility] Address [address] [place] [address] Care Team Providers Care Community Health Nurse Staff Name Role Phone Kristian Ashley DO Primary Care Provider Encounter Details Date Type Department Care Team (Late st Contact Info) Description 03/20/2024 Abstract [facility] Oncology and Hematology - Arya [address] [facility] [address] [place] [address] Jesus Liu MD [address] [facility] [address] [place] [address] Social History Tobacco Use Types Packs/Day Years Used Date Smoking Tobacco: Former Cigarettes 0 Q uit: 2021 Smokeless Tobacco: Never Alcohol Use Standard Drinks/Week Comments Yes 0 (1 standard drink = 0.6 oz pur e alcohol) occasional Sex and Gender Information Value Date Recorded Sex Assigned at Not on file 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
--- OUTSIDE RECORDS SUMMARY | 2025-10-21 08:09 | XMS_ITS | Clinical Summary ---
Author Organization [facility] Address [address] [place] [address] Care Team Providers Care Risk Officer Name Role Phone Ness Lerma NP Primary Care Provider Allergies No known active allergies Medications lisinopriL (PRINIVIL,ZESTRI L) 40 mg tablet Take 1 tablet (40 mg total) by mouth 5 Active amLODIPine (NORVASC) 10 mg tablet Take 1 tablet (10 mg total) by mouth 5 Active ferrous sulfate 325 mg (65 mg of elemental iron) tablet Take 1 tablet (325 mg total) by mouth 4 Active multivit-min/fol ic acid/lutein (CENTRUM SILVER ORAL) Centrum Silver 1 Active carvediloL (COREG) 12.5 mg tabletIndication s:Primary hypertension Take 1 tablet (12.5 mg total) by mouth 2 (two) times a day with meals 180 tablet 3 5 026 Active carvediloL (COREG) 6.25 mg tablet TAKE 1 TABLET BY MOUTH EVERY 12 HOURS FOR 1 MONTH MUST ADMINISTER WITH A MEAL/FOOD 025 Discontin ued(Reord er) Encounters Date Type Department Care Team Description 10/17/2025 2:15 PM HIDE EXAMINER Office Visit [facility] Medicine Nephrology [address] [facility] 5th [place] [address] [place] [address] Diamante Agustin MD Stage 3a chronic kidney disease (HCC) (Primary Dx); Primary hypertension from Last 3 Months Surgical History Surgery Date Site/Laterality Comments OTHER SURGICAL HISTORY 2010 hemorrhoidectomy 08/09 Medical History Medical History Date Comments Hypertension Hypertension History of multiple allergies Al lergies Family History Medical History Relation Name Comments Hypertension Brother Hypertension; Diabetes Maternal Grandmother Diabete s mellitus; Hypertension Mother Hypertension; Relation Name Status Comments Brother Maternal Grandmother Mother Social History Tobacco Use Types Packs/Day Years Used Date Smoking Tobacco: Former Cigarettes Tobacco Cessation:Counseling Given: Not Answered Alcohol Use Standard Drinks/Week Comments No 0 (1 standard drink = 0.6 oz pur e alcohol) Sex and Gender Information Value Date Recorded Sex Assigned at Not on file Legal Sex Male 1:27 AM HIDE EXAMINER Gender Identity Not on file Sexual Orientation Not on file Last Filed Vital Signs Vital Sign Reading Time Taken Comments Blood Pressure 149/72 10/17/2025 2:12 PM HIDE EXAMINER Pulse 82 10/17/2025 2:12 PM HIDE EXAMINER Temperature - - Respiratory Rate - - Oxygen Saturation 97% 10/17/2025 2:12 PM HIDE EXAMINER Inhaled Oxygen Concentration - - Weight 97.5 kg (215 lb) 10/17/2025 2:12 PM HIDE EXAMINER Height 180.3 cm (5' 11) 10/17/2025 2:12 PM HIDE EXAMINER Body Mass Index 29.99 10/17/2025 2:12 PM HIDE EXAMINER Plan of Treatment Health Maintenance Due Date Last Done Comments Colon Cancer Screening-Colonoscopy 1957 Depression Screening 1957 Fall Risk Assessment 1957 Hepatitis C Screening 1957 Prostate Cancer Screening-PSA 1957 Hepatitis B Screening 1975 Pneumococcal vaccine 65+ (1 of 2 - PCV) 1976 Abdominal Aortic Aneurysm (A AA) Screen 2022 Well Visit 65+ 2022 Covid-19 Vaccine (7 - 2024-2 6 season) 2025 02/24/2023, 07/24/2022, 07/23/2022, Additional history exists Influenza Vaccine (#1) 2025 , 08/19/2022, 08/11/2022, Additional history exists DTaP/Tdap/Td Vaccine (2 - Td or Tdap) 11/21/2030 11/21/2020 Zoster Vaccine Completed 05/27/2022, 02/09/2022 Insurance ANTHEM ACCESS ANTHEM ACCESS Care Teams Risk Officer Relationship Specialty Start Date End Date Ness Lerma NP [address] [place] [address] DR YAO [address] [place] [id number] PCP - General Nurse Practitioner 10/17/25
--- OUTSIDE RECORDS SUMMARY | 2025-10-21 08:09 | XMS_ITS | Clinical Summary ---
Author Organization [facility] Address [address] [place] [address] Care Team Providers Care Medical Office Secretary Name Role Phone Unavailable Primary Care Provider Unavailabl e Source Comments [facility],non-owned Affiliates and Associated Physician Practices is amultiple site organization consisting of ambulatory clinics and hospital sitesin [place], [place], [place] and [place]. This disclosure is being madepursuant to the Care Everywhere program and may not contain all information available regarding this patient. Last updated 18.[facility] Social History Tobacco Use Types Packs/Day Years [...] 2007 ZOSTER VACCINE (1 of 2) 2007 DEPRESSION SCREENING 10/31/2024 COVID-19 VACCINE (1 - 2024-2 6 season) 2025 INFLUENZA VACCINE (#1) 2025 Respiratory Syncytial Virus [...] patient's age to complete this topic Insurance BC/[facility] [place] SELF PAY NO INSURANCE Member Subscriber Plan / Payer (Ef fective for All Dates) Name:Kristian Cabrera Member ID:Not on file Relation to Subscriber:Not on file Name:KRISTIAN CABRERA Subscriber ID:Not on file Address: [address] [place] [phone] Payer ID:Not on file Group ID:Not on file Type:Self Pay Address: [facility]
[2025-10-21 13:59] LABS: Hematocrit 43.2 % (42.0-52.0); Hemoglobin 14.0 g/dL (14.0-18.0); Immature Granulocyte Percent A 0.6 % (0-0.5); Immature Platelet Fraction Pct 7.1 % (0.9-11.2); Lymphocytes Absolute Auto 0.90 K/mm3 (0.9-3.2); Mean Corpuscular HGB Conc 32.4 g/dl (32-36); Mean Corpuscular Hemoglobin 29.0 pg (26-34); Mean Corpuscular Volume 89.4 fl (80-100); Nucleated Red Blood Cells Absolute Auto 0.000 K/mm3 (0.0-0.012); Nucleated Red Blood Cells Perc 0.0 % (0.0-0.2); Platelet Count Result 79 k/mm3 (150-375); Red Blood Count 4.83 M/mm3 (4.6-6.20); White Blood Count 3.6 K/mm3 (4.5-10.0)
[2025-10-21 14:13] LABS: Alanine Aminotransferase 51 U/L (6-50); Albumin Level 4.5 g/dL (3.5-5.1); Alkaline Phosphatase 94 U/L (38-126); Anion Gap 11 mmol/L (4-12); Aspartate Amino Transferase 54 U/L (17-59); Bilirubin,Total 0.8 mg/dL (0.2-1.3); Blood Urea Nitrogen 28 mg/dL (9-20); Calcium 10.5 mg/dL (8.4-10.2); Carbon Dioxide 26 mmol/L (22-30); Chloride 102 mmol/L (98-107); Estimated Glomerular Filt Rate 45; Glucose 223 mg/dL (65-110); Potassium 4.6 mmol/L (3.4-5.0); Sodium 139 mmol/L (137-145); Total Protein 8.2 g/dL (6.3-8.2)
[2025-10-21 14:20] LABS: Parathyroid Intact 17.7 pg/mL (14.5-75.2)
[2025-10-21 14:26] LABS: Schistocytes None Seen
[2025-10-21 19:06] LABS: Add Urine Microscopic? YES; Appearance Urine Turbid (Clear); Glucose Urine UA 1+ mg/dL (Negative); Leukocyte Esterase Ur Negative LEU/UL (Negative); Need Manual Microscopic Reviewed; Nitrate Urine Negative (Negative); Specific Grav Ur 1.019 (1.001-1.035)
[2025-10-21 19:17] LABS: MALB Creatinine Ratio 25.0 mg/g (0-30)
[2025-10-21 20:25] LABS: Total Protein Urine Random 18 mg/dL; Ur Ttl Prot Creatinine Ratio 0.10 mg/mg (0-0.20)
[2025-10-22 13:08] LABS: Free Lambda Lt Chains, Serum 22.7 mg/L (5.7-26.3); Kappa/Lambda Ratio, Serum 1.38 (0.26-1.65)
[2025-10-22 14:08] LABS: ANA by IFA Rfx Titer/Pattern Positive (.)
== END 2025-10-21 07:57 | disposition home or self-care (01) ==
PROVIDERS: PCP Nurse Practitioner
DX: I12.9 Hypertensive chronic kidney disease with stage 1 through stage 4 chronic kidney disease, or unspecified chronic kidney disease (principal); N18.31 Chronic kidney disease, stage 3a
CPT/HCPCS: 36415; 80053; 81001; 82043; 82306; 82570; 83521; 83970; 84100; 84156; 85025; 85055; 86037; 86038